=== PATIENT | male | born 1985 | race Caucasian/White ===

== ENCOUNTER 2019-01-19 22:34 | Emergency (ER) | payer BC ==
[~2019-01-19] VITALS: Ht 170.2 cm; Wt 68.0 kg
[2019-01-19 22:53] VITALS: BP_SYST 141
[2019-01-19 23:19] VITALS: BP_SYST 141
== END 2019-01-19 23:19 | disposition home or self-care (01) ==
LOC: SED 22:34
DX: L50.9 Urticaria, unspecified (principal); R03.0 Elevated blood-pressure reading, without diagnosis of hypertension; F17.210 Nicotine dependence, cigarettes, uncomplicated
CPT/HCPCS: 99283

== ENCOUNTER 2021-04-13 06:58 | Emergency (ER) | payer BC ==
[~2021-04-13] VITALS: Ht 170.2 cm; Wt 72.6 kg
[2021-04-13 07:25] VITALS: BP_SYST 139
[2021-04-13] MEDS ORDERED: NAPR-688 PO (07:54)
[2021-04-13 08:04] VITALS: BP_SYST 120
== END 2021-04-13 08:03 | disposition home or self-care (01) ==
LOC: SED 06:58
DX: K11.21 Acute sialoadenitis (principal); Z79.899 Other long term (current) drug therapy
CPT/HCPCS: 99282